=== PATIENT | male | born 1940 | race Caucasian/White ===

== ENCOUNTER 2016-10-11 05:25 | Emergency (ER) | payer MEDICARE, OTHER ==
[~2016-10-11] VITALS: Ht 160 cm; Wt 88.0 kg
[~2016-10-11 05:25] MED LIST: AMLO-218 PO; CEPH-443 PO; CIPR500T4 PO; TAMS-14 PO
[2016-10-11 05:34] VITALS: Ht 160 cm; Wt 88.0 kg
--- NOTE | 2016-10-11 05:59 | ERD ---
ER Documentation Chief Complaint Date/Time DATE: 10/11/16 TIME: 05:58 Chief Complaint urinary retention HPI 75-year-old male urinary retention for 12 hours. No fevers no chills no nausea vomiting. No abdominal pain. No other current complaints. ROS All systems reviewed and are negative except as per history of present illness. Medications Home Meds Active Scripts Ciprofloxacin Hcl* (Ciprofloxacin Hcl*) 500 Mg Tablet, 500 MG PO BID for 7 Days , TAB Prov:KEE ARMSTRONG PA-C 03/04/16 Cephalexin* (Keflex*) 500 Mg Capsule, 500 MG PO QID for 7 Days, CAP Prov:SHABNAM BARTLETT PA-C 10/20/15 Amlodipine Besylate* (Norvasc*) 10 Mg Tablet, 10 MG PO DAILY, #30 TAB Prov:KEE ARMSTRONG PA-C 03/04/15 Tamsulosin Hcl* (Flomax*) 0.4 Mg Cap.er.24h, 0.4 MG PO BID, #30 CAP Prov:KEE ARMSTRONG PA-C 03/04/15 Allergies Allergies: Coded Allergies: No Known Allergy (Unverified , 10/10/15) PMhx/Soc History of Surgery: No Anesthesia Reaction: No Hx Neurological Disorder: No Hx Respiratory Disorders: No Hx Cardiac Disorders: Yes (HTN) Hx Psychiatric Problems: No Hx Miscellaneous Medical Probl: Yes (prostate enlarged. ) Hx Alcohol Use: No Hx Substance Use: No Hx Tobacco Use: No Physical Exam Vitals Vital Signs Date Time Temp Pulse Resp B/P Pulse Ox O2 Delivery O2 Flow Rate FiO2 10/11/16 05:34 98.4 98 18 191/92 96 Physical Exam Const: [] Head: Atraumatic Eyes: Normal Conjunctiva ENT: Normal External Ears, Nose and Mouth. Neck: Full range of motion..~ No meningismus. Resp: Clear to auscultation bilaterally Cardio: Regular rate and rhythm, no murmurs Abd: Soft, non tender, non distended. Normal bowel sounds Skin: No petechiae or rashes Back: No midline or flank tenderness Ext: No cyanosis, or edema Neur: Awake and alert Psych: Normal Mood and Affect Procedures/MDM Medical decision-makin-year-old male urinary retention. Treated with Meyer [facility] Follow-up with PCP. Return in 24 hours for catheter removal Departure Diagnosis: Primary Impression: Retention of urine Condition: Stable MIGUEL DELEON Oct 11, 2016 05:59
[2016-10-11] MEDS ORDERED: CIPR500T4 PO (06:00)
[2016-10-11] MEDS ORDERED: TAMS-14 PO (06:00)
[2016-10-11 06:40] VITALS: BP 183/87; PULSE 83; RESP 16; TEMP 98.4
== END 2016-10-11 06:58 | disposition home or self-care (01) ==
LOC: E/R 05:25
DX: R33.9 Retention of urine, unspecified (principal); I10 Essential (primary) hypertension
CPT/HCPCS: 99284

== ENCOUNTER 2016-12-09 20:13 | Emergency (ER) | payer MEDICARE, OTHER ==
[~2016-12-09] VITALS: Ht 167.6 cm; Wt 88.0 kg
[2016-12-09 20:14] VITALS: Ht 167.6 cm; Wt 88.0 kg
[2016-12-09] MEDS ORDERED: IBUPROFEN 200 MG TAB PO ONE (21:30)
[2016-12-09] MEDS ORDERED: traMADol 50 MG TAB PO ONE (21:30)
[2016-12-09] MEDS ORDERED: LIDOCAINE 1% (MDV) 20 ML INJ SC ONE (21:30)
[2016-12-09] MEDS ORDERED: CEPH-443 PO (21:30)
[2016-12-09] MEDS ORDERED: IBUP400T22 PO (21:30)
[2016-12-09] MEDS ORDERED: ACET1TAB40 PO (21:30)
[2016-12-09] MEDS ORDERED: CEFTRIAXONE 1 GM INJ IM ONE (21:30)
--- NOTE | 2016-12-09 21:33 | ERD ---
ER Documentation Chief Complaint Date/Time DATE: 12/09/16 TIME: 21:32 Chief Complaint c/o dental "growth" causing left facial pain and swelling. HPI 76-year-old male presents with left facial swelling and dental pain for the last day. He may have had tactile fevers with no fever triage. He denies any shortness of breath, difficulty swallowing, chest pain, vomiting or abdominal pain. He has no recent dental care ROS All systems reviewed and are negative except as per history of present illness. Medications Home Meds Active Scripts Ibuprofen* (Motrin*) 400 Mg Tab, 400 MG PO Q6, #20 TAB Prov:YOLIS ART MD 12/09/16 Acetaminophen with Codeine (Acetaminophen-Cod #3 Tablet) 1 Each Tablet, 1 TAB PO Q6H Y for PAIN, #10 TAB Prov:YOLIS ART MD 12/09/16 Cephalexin* (Keflex*) 500 Mg Capsule, 500 MG PO QID for 10 Days, CAP Prov:YOLIS ART MD 12/09/16 Tamsulosin Hcl* (Flomax*) 0.4 Mg Cap.er.24h, 0.4 MG PO BID, #30 CAP Prov:MIGUEL DELEON SSatish 10/11/16 Ciprofloxacin Hcl* (Ciprofloxacin Hcl*) 500 Mg Tablet, 500 MG PO BID for 10 Days , TAB Prov:MIGUEL DELEON 10/11/16 Ciprofloxacin Hcl* (Ciprofloxacin Hcl*) 500 Mg Tablet, 500 MG PO BID for 7 Days , TAB Prov:KEE ARMSTRONG PA-C 03/04/16 Cephalexin* (Keflex*) 500 Mg Capsule, 500 MG PO QID for 7 Days, CAP Prov:SHABNAM BARTLETT PA-C 10/20/15 Amlodipine Besylate* (Norvasc*) 10 Mg Tablet, 10 MG PO DAILY, #30 TAB Prov:KEE ARMSTRONG PA-C 03/04/15 Tamsulosin Hcl* (Flomax*) 0.4 Mg Cap.er.24h, 0.4 MG PO BID, #30 CAP Prov:KEE ARMSTRONG PA-C 03/04/15 Allergies Allergies: Coded Allergies: No Known Allergy (Unverified , 10/10/15) PMhx/Soc History of Surgery: No Anesthesia Reaction: No Hx Neurological Disorder: No Hx Respiratory Disorders: No Hx Cardiac Disorders: Yes (HTN) Hx Psychiatric Problems: No Hx Miscellaneous Medical Probl: Yes (prostate enlarged. ) Hx Alcohol Use: No Hx Substance Use: No Hx Tobacco Use: No Physical Exam Vitals Vital Signs Date Time Temp Pulse Resp B/P Pulse Ox O2 Delivery O2 Flow Rate FiO2 12/09/16 20:14 98.0 75 18 202/89 98 Physical Exam Const: [], [id number] per Head: Atraumatic Eyes: Normal Conjunctiva ENT: Normal External Ears, Nose and Mouth. His teeth with tenderness in the left upper canine molar area with mild facial swelling. No significant erythema or warmth or induration although he does have mild swelling of the left upper maxillary area. No periorbital swelling. Neck: Full range of motion..~ No meningismus. Resp: Clear to auscultation bilaterally Cardio: Regular rate and rhythm, no murmurs Abd: Soft, non tender, non distended. Normal bowel sounds Skin: No petechiae or rashes Back: No midline or flank tenderness Ext: No cyanosis, or edema Neur: Awake and alert Psych: Normal Mood and Affect Results 24 hrs Current Medications Medications (Trade) Dose Ordered Sig/Lj Route PRN Reason Start Time Stop Time Status Last Admin Dose Admin Ibuprofen (Motrin) 400 mg ONCE ONCE PO 12/09/16 21:30 12/09/16 21:31 DC Tramadol HCl (Ultram) 50 mg ONCE ONCE PO 12/09/16 21:30 12/09/16 21:31 DC Ceftriaxone Sodium (Rocephin) 1 gm ONCE ONCE IM 12/09/16 21:30 12/09/16 21:31 DC Lidocaine (Xylocaine 1% (Mdv) 20 ml) 20 ml ONCE ONCE SC 12/09/16 21:30 12/09/16 21:31 DC Procedures/MDM Presents with signs of the facial swelling likely related to poor dentition and dental infection. There is no current evidence of significant facial cellulitis , airway obstruction, sepsis. He was given Rocephin 1 g IM here, ibuprofen and tramadol be discharged home with Keflex and ibuprofen and dental follow-up and return precautions. The patient was stable with no new complaints during the ER course. Clinically, there is no current evidence to suggest meningitis, sepsis, acute abdomen, pneumonia, acute coronary syndrome, pulmonary embolism, or any other emergent condition appearing to require further evaluation or hospitalization. The patient should certainly return for any new or worsening symptoms per the aftercare instructions. They should otherwise follow-up with her primary care doctor for reevaluation this week. Departure Diagnosis: Primary Impression: Pain, dental Condition: Stable Patient Instructions: Dental Abscess, Dental Pain Referrals: [facility] ([facility] walk in clinic) Additional Instructions: See dentist for follow-up. Recheck otherwise for new or worsening symptoms. YOLIS ART MD Dec 09, 2016 21:33
== END 2016-12-09 22:28 | disposition home or self-care (01) ==
LOC: FTE 20:13
DX: K08.89 Other specified disorders of teeth and supporting structures (principal); I10 Essential (primary) hypertension
CPT/HCPCS: 96372; 99284; J0696

== ENCOUNTER 2017-02-13 05:55 | Emergency (ER) | payer MEDICARE, OTHER ==
[~2017-02-13] VITALS: Ht 160 cm; Wt 87.3 kg
[~2017-02-13 05:55] MED LIST changes: +ACET1TAB40 PO; +IBUP400T22 PO
[2017-02-13 05:59] VITALS: Ht 160 cm; Wt 87.3 kg
[2017-02-13 07:01] LABS: ADD UMIC NO; UR ASCORBIC ACID NEGATIVE (NEGATIVE); UR BILIRUBIN (Dip) NEGATIVE (NEGATIVE); UR BLOOD (Dip) NEGATIVE (NEGATIVE); UR CLARITY CLEAR (CLEAR); UR COLOR YELLOW (YELLOW); UR GLUCOSE (Dip) NEGATIVE (NEGATIVE); UR KETONES (Dip) NEGATIVE (NEGATIVE); UR LEUKOCYTE ESTERASE (Dip) NEGATIVE Leu/ul (NEGATIVE); UR NITRITE (Dip) NEGATIVE (NEGATIVE); UR SPECIFIC GRAVITY (Dip) 1.016 (1.003-1.030); UR TOTAL PROTEIN (Dip) NEGATIVE (NEGATIVE); UR UROBILINOGEN (Dip) NEGATIVE (NEGATIVE)
--- NOTE | 2017-02-13 07:20 | ERD ---
ER Documentation Chief Complaint Chief Complaint dysuria now, hx urinary retention HPI 76-year-old male presents with a history of intermittent urinary retention. He takes alpha-lucy for his prostate. Has been unable to urinate since last night and this morning. He was last seen for this in September. He does have outpatient follow-up with urology. Denies any new medications or inciting events although he is said this problem recurrently usually at night when holding his urine. Denies fever or vomiting. His pain due to urinary retention suprapubically but denies any other localized pain. ROS All systems reviewed and are negative except as per history of present illness. Medications Home Meds Active Scripts Ibuprofen* (Motrin*) 400 Mg Tab, 400 MG PO Q6, #20 TAB Prov:YOLIS ART MD 12/09/16 Acetaminophen with Codeine (Acetaminophen-Cod #3 Tablet) 1 Each Tablet, 1 TAB PO Q6H Y for PAIN, #10 TAB Prov:YOLIS ART MD 12/09/16 Cephalexin* (Keflex*) 500 Mg Capsule, 500 MG PO QID for 10 Days, CAP Prov:YOLIS ART MD 12/09/16 Tamsulosin Hcl* (Flomax*) 0.4 Mg Cap.er.24h, 0.4 MG PO BID, #30 CAP Prov:MIGUEL DELEON 10/11/16 Ciprofloxacin Hcl* (Ciprofloxacin Hcl*) 500 Mg Tablet, 500 MG PO BID for 10 Days , TAB Prov:MIGUEL DELEON 10/11/16 Ciprofloxacin Hcl* (Ciprofloxacin Hcl*) 500 Mg Tablet, 500 MG PO BID for 7 Days , TAB Prov:KEE ARMSTRONG PA-C 03/04/16 Cephalexin* (Keflex*) 500 Mg Capsule, 500 MG PO QID for 7 Days, CAP Prov:SHABNAM BARTLETT PA-C 10/20/15 Amlodipine Besylate* (Norvasc*) 10 Mg Tablet, 10 MG PO DAILY, #30 TAB Prov:KEE ARMSTRONG PA-C 03/04/15 Tamsulosin Hcl* (Flomax*) 0.4 Mg Cap.er.24h, 0.4 MG PO BID, #30 CAP Prov:KEE ARMSTRONG PA-C 03/04/15 Allergies Allergies: Coded Allergies: No Known Allergy (Unverified , 10/10/15) PMhx/Soc History of Surgery: No Anesthesia Reaction: No Hx Neurological Disorder: No Hx Respiratory Disorders: No Hx Cardiac Disorders: Yes (HTN) Hx Psychiatric Problems: No Hx Miscellaneous Medical Probl: Yes (prostate enlarged. ) Hx Alcohol Use: No Hx Substance Use: No Hx Tobacco Use: No Physical Exam Vitals Vital Signs Date Time Temp Pulse Resp B/P Pulse Ox O2 Delivery O2 Flow Rate FiO2 02/13/17 05:59 98.9 97 20 207/100 97 Physical Exam Const: [] Alert, [id number]. Head: Atraumatic Eyes: Normal Conjunctiva ENT: Normal External Ears, Nose and Mouth. Neck: Full range of motion..~ No meningismus. Resp: Clear to auscultation bilaterally Cardio: Regular rate and rhythm, no murmurs Abd: Soft, suprapubic tenderness. No rebound. non distended. Normal bowel sounds Skin: No petechiae or rashes Back: No midline or flank tenderness Ext: No cyanosis, or edema Neur: Awake and alert Psych: Normal Mood and Affect Results 24 hrs Laboratory Tests Test 02/13/17 06:41 Urine Color YELLOW Urine Clarity CLEAR Urine pH 7.0 Urine Specific [place] 1.016 Urine Ketones NEGATIVEmg/dL Urine Nitrite NEGATIVEmg/dL Urine Bilirubin NEGATIVEmg/dL Urine Urobilinogen NEGATIVEmg/dL Urine Leukocyte Esterase NEGATIVELeu/ul Urine Hemoglobin NEGATIVEmg/dL Urine Glucose NEGATIVEmg/dL Urine Total Protein NEGATIVEmg/dl Procedures/MDM Meyer catheter was placed. Approximately 700 cc urine was obtained. Leg bag was placed. Patient presents with a history of recurrent urinary retention. He has good urology follow-up. Urine was negative for acute abnormalities. Patient was discharged home with a leg bag instructions for recheck in 2-3 days for catheter removal. Return sooner for fevers, vomiting, new symptoms. Current signs or symptoms do not suggest acute abdomen, sepsis, UTI, additional complications. The patient was stable with no new complaints during the ER course. Clinically, there is no current evidence to suggest meningitis, sepsis, acute abdomen, pneumonia, acute coronary syndrome, pulmonary embolism, or any other emergent condition appearing to require further evaluation or hospitalization. The patient should certainly return for any new or worsening symptoms per the aftercare instructions. They should otherwise follow-up with her primary care doctor for reevaluation this week. Departure Diagnosis: Primary Impression: Acute urinary retention Condition: Stable Patient Instructions: Urinary Retention, Male Additional Instructions: CHEQUE OTRO VEZ EN 2-3 BAKER PARA SACAR CATHETER or regresa para mas o nueva simptomas- [place]. YOLIS ART MD Feb 13, 2017 07:20
== END 2017-02-13 07:45 | disposition home or self-care (01) ==
LOC: FTE 05:55
DX: R33.9 Retention of urine, unspecified (principal); I10 Essential (primary) hypertension
CPT/HCPCS: 81003

== ENCOUNTER 2017-09-18 05:25 | Emergency (ER) | END 2017-09-18 09:33 | disposition home or self-care (01) ==

== ENCOUNTER 2017-12-22 18:08 | Emergency (ER) | END 2017-12-22 22:50 | disposition home or self-care (01) ==